=== PATIENT | female | born 1950 | race Caucasian/White ===

== ENCOUNTER 2017-09-04 09:07 | Outpatient (CLI) | payer MEDICARE ==
--- NOTE | 2017-09-04 11:08 | ULT ---
HEPATIC ULTRASOUND: DATE: 09/04/17. HISTORY: Cirrhosis. FINDINGS: Multiple longitudinal and transverse images of the liver and abdomen are obtained using a multihertz curvilinear transducer. Real-time and color flow images demonstrate some hepatomegaly seen. No defi nite evidence of hepatic parenchymal masses or lesions seen. The gallbladder has been surgically rem pawel. The common bile duct is of normal size measuring 4.7 mm. The pancreas and the visualized portions is unremarkable. Normal hepatopedal flow is seen in the portal system. A normal spleen is seen measuring 8.3 x 3.7 x 3.2 cm. The right kidney is unremarkable. The abdominal aorta and inferior vena cava are suboptimally visualized due to overlying bowel gas. IMPRESSION: 1. Normal hepatic ultrasound. 2. No evidence of ascites. 3. Normal hepatopetal flow is seen. POS: [facility]
== END 2017-09-04 09:08 | disposition home or self-care (01) ==
LOC: ULT 09:07
PROVIDERS: ATTEND Internal Medicine Gastroenterology
DX: K74.3 Primary biliary cirrhosis (principal)
CPT/HCPCS: 36415; 76705; 80053; 82306; 83516; 84446; 84590; 85027; 85610

== ENCOUNTER 2019-07-18 13:20 | Outpatient (CLI) | payer MEDICARE ==
--- NOTE | 2019-07-18 15:39 | MRI ---
MRI BRAIN WITH AND WITHOUT CONTRAST: INDICATION: Headaches. Migraine. COMPARISON: No comparison. FINDINGS: Ventricles have normal size and position. There are scattered nonspecific white matter hyperintensit ies which would be most consistent with chronic microvascular ischemic change in a patient of this ag e. There is no evidence of restricted diffusion. No abnormal enhancement. The intracranial internal carotid arteries and proximal cerebral arteries demonstrate expected flow v oids. Paranasal sinuses appear aerated. There is focal mucosal opacification of an anterior right e thmoid air cell. IMPRESSION: 1. Mild microvascular ischemic change seen in the white matter of both cerebral hemispheres. No joshua dence of acute abnormality. 2. Incidentally noted is mucosal opacification of an anterior right ethmoid air cell. POS: C
== END 2019-07-18 13:21 | disposition home or self-care (01) ==
LOC: SCSMRI 13:20
PROVIDERS: ATTEND Psychiatry & Neurology Neurology
DX: G43.109 Migraine with aura, not intractable, without status migrainosus (principal); I67.82 Cerebral ischemia; J34.89 Other specified disorders of nose and nasal sinuses
CPT/HCPCS: 70553; 82565

== ENCOUNTER 2021-04-23 10:01 | Outpatient (CLI) | payer MEDICARE | END 2021-04-23 10:02 | disposition home or self-care (01) | LOC: BICMRI 10:01 | PROVIDERS: ATTEND Registered Nurse | DX: M54.2 Cervicalgia (principal); M47.812 Spondylosis without myelopathy or radiculopathy, cervical region | CPT/HCPCS: 72141 ==

== ENCOUNTER 2025-03-10 09:22 | Outpatient (CLI) | payer MEDICARE | END 2025-03-10 09:23 | disposition home or self-care (01) | LOC: BICRAD 09:22 | PROVIDERS: ATTEND Orthopaedic Surgery | DX: M54.2 Cervicalgia (principal); M47.812 Spondylosis without myelopathy or radiculopathy, cervical region; Z98.1 Arthrodesis status | CPT/HCPCS: 72040 ==

== ENCOUNTER 2025-04-30 10:11 | Outpatient (CLI) | payer MEDICARE | END 2025-04-30 10:12 | disposition home or self-care (01) | LOC: BICRAD 10:11 | PROVIDERS: ATTEND Orthopaedic Surgery | DX: M54.2 Cervicalgia (principal); M40.50 Lordosis, unspecified, site unspecified; Z98.1 Arthrodesis status | CPT/HCPCS: 72040 ==

== ENCOUNTER 2025-06-12 08:31 | Outpatient (CLI) | payer MEDICARE | END 2025-06-12 08:32 | disposition home or self-care (01) | LOC: ULT 08:31 | PROVIDERS: ATTEND Internal Medicine Gastroenterology | DX: K74.3 Primary biliary cirrhosis (principal); K21.9 Gastro-esophageal reflux disease without esophagitis; R19.7 Diarrhea, unspecified; Z86.0100 Personal history of colon polyps, unspecified | CPT/HCPCS: 76705 ==